=== PATIENT | male | born 1955 ===

== ENCOUNTER 2021-11-23 12:19 | Observation (INO) | payer MEDICARE ==
[~2021-11-23] VITALS: Ht 180.3 cm; Wt 89.0 kg
[2021-11-23] MEDS ORDERED: FLUT.05NI (14:56)
[2021-11-23] MEDS ORDERED: ALLEGRA ALLERG180 MG PO (14:57)
[2021-11-23] MEDS ORDERED: Aspir 8181 MG PO (14:58)
[2021-11-23] MEDS ORDERED: FAMO20 PO (14:59)
--- NOTE | 2021-11-23 15:43 | NUR ---
PATIENT ARRIVED AT 1437. ASSUMED CARE OF PATIENT UPON HIS ARRIVAL VIA EMS FROM [facility] IN [place]. HE IS A&O X 4, PLEASANT AND COOPERATIVE. DENIES CHEST DISCOMFORT CURRENTLY. HIS AND ADULT CHILDREN ARRIVED SHORTLY AFTER HE DID. WAS ABLE TO AMBULATE INDEPENDENTLY FROM [facility]NEY TO BED. HEPARIN INFUSING THROUGH RAC 18 GAUGE IV; PLACED ON PUMP AT 12.5 ML/HR WHICH WAS RATE AT PREVIOUS HOSPITAL. PT ABLE TO GIVE HISTORY. PLACED ON TELEMETRY: SINUS BRADYCARDIA IN THE 40'S AT REST. CARDIOLOGY CONSULT PLACED, AND DR. ALONSO HAS SEEN PATIENT. DR STEIN ASSESSING PATIENT AT THIS TIME.
--- NOTE | 2021-11-23 15:51 | NUR ---
PROOF OF COVID VACCINATION CARD COPIED AND COPY PLACED ON CHART.
--- NOTE | 2021-11-23 18:28 | NUR ---
SHIFT SUMMARY: NO ACUTE EVENTS SINCE ARRIVAL. DENIES CHEST DISCOMFORT AT THIS TIME. NO EVENTS ON TELEMETRY, SINUS NAKUL, RESTING HR IN THE 40'S WHICH HE STATES IS NORMAL FOR HIM. GETTING UP TO BR INDEPENDENTLY, GAIT STEADY. EDUCATED ABOUT FALL PRECAUTIONS AND THAT IF HE FEELS ANY CHEST DISCOMFORT, DIZZINESS, OR SOB HE NEEDS TO CALL NURISNG IMMEDIATELY; VERBALIZED UNDERSTANDING. PLAN IS CARDIAC CATH IN THE MORNING.
[2021-11-24 02:12] LABS: BASOPHILS ABSOLUTE AUTO 0.07 K/mm3 (0.00-0.23); BASOPHILS PERCENT AUTO 1 % (0-2); EOSINOPHILS ABSOLUTE AUTO 0.32 K/mm3 (0.00-0.68); EOSINOPHILS PERCENT AUTO 6 % (0-6); Hematocrit 42.7 % (37.0-53.0); Hemoglobin 14.2 g/dL (13.5-17.5); IMMATURE GRAN ABSOLUTE AUTO 0.02 K/mm3 (0.00-0.10); IMMATURE GRAN PERCENT AUTO 0 % (0-1); LYMPHOCYTES ABSOLUTE AUTO 2.55 K/mm3 (0.84-5.20); LYMPHOCYTES PERCENT AUTO 50 % (21-46); MONOCYTES ABSOLUTE AUTO 0.37 K/mm3 (0.16-1.47); MONOCYTES PERCENT AUTO 7 % (4-13); Mean Corpuscular HGB 29.8 pg (26.0-34.0); Mean Corpuscular HGB Conc 33.3 g/dL (31.5-36.5); Mean Corpuscular Volume 90 fL (80-100); Mean Platelet Volume 10.8 fL (9.1-12.4); NEUTROPHILS ABSOLUTE AUTO 1.73 K/mm3 (1.96-9.15); NEUTROPHILS PERCENT AUTO 34 % (41-73); Platelet Count 215 K/mm3 (150-400); RDW Coefficient Variation 13.1 % (11.7-14.2); RDW Standard Deviation 43.2 fL (35.1-46.3); Red Blood Cell Count 4.76 M/mm3 (4.30-5.90); White Blood Cell Count 5.06 K/mm3 (4.00-11.30)
--- NOTE | 2021-11-24 02:33 | NUR ---
REPORTED TO DR. 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 PT IS CURRENTLY SLEEPING, HE IS NPO, HE IS AWAITING PLANNED ANGIOGRAM IN THE AM. DR. GALINDO WITH NO NEW ORDERS, WILL CONTINUE TO MONITOR.
[2021-11-24 03:02] LABS: Anion Gap 7 mmol/L (6-16); Blood Urea Nitrogen 19 mg/dL (8-24); Bun/Creatinine Ratio 23.5 (12.0-20.0); CHOL/HDL RATIO 3.5; CO2, Blood 25 mmol/L (21-32); Calcium, Blood 8.7 mg/dL (8.5-10.1); Chloride, Blood 111 mmol/L (98-108); Cholesterol 236 mg/dL (50-200); Creatinine, Blood 0.81 mg/dL (0.60-1.20); Glomerular Filtration Rate 96 (60-); Glucose, Blood 108 mg/dL (70-99); HDL Cholesterol 68 mg/dL (>39); Low Density Lipoprotein Chol 136 mg/dL (0-110); Potassium, Blood 3.9 mmol/L (3.5-5.5); Sodium, Blood 143 mmol/L (136-145); Triglycerides 161 mg/dL (30-160); Very Low Density Lipoprot Chol 32 mg/dL (6-32)
--- NOTE | 2021-11-24 06:20 | NUR ---
SHIFT SUMMARY: PATIENT A/OX4, ADLIB IN ROOM, REPOSITIONS SELF IN BED. NO COMPLAINTS OF CHEST PAIN THROUGHOUT THE NIGHT. TROPONIN RESULTED CRITICAL TONIGHT- MD NOTIFIED. HEPARIN DRIP CONTINUED- REVIEW ADMINISTRATION PER EMAR. TELEMETRY READING SINUS NAKUL THROUGHOUT SHIFT HR SUSTAINING 40'S OCCASIONALLY DROPPING 38- 39 BPM PT NON SYMPTOMATIC - MD NOTIFIED.
--- NOTE | 2021-11-24 06:59 | NUR ---
2 RN HANDOFF SHIFT CHANGE- HEPARIN DRIP VERIFICATION WITH RANCHO ASCENCIO RN
--- NOTE | 2021-11-24 08:46 | NUR ---
PATIENT OFF UNIT TO [facility] CONSULTANT VIA W/C AT 0815. FAMILY HAS ALL BELONGINGS, FOLLOWED PT TO SECOND FLOOR WAITING AREA.
--- NOTE | 2021-11-24 16:31 | NUR ---
SHIFT SUMMARY Pt was a transfer from the medical floor after he went to the heart center for angio with two stents. He was a little dizzy and fatigued when he first got to his room but his vitals were stable and after some rest he started to feel better. His and daughter have been at the bedside. He continues on the IV fluids as ordered and he is also drinking water and ate most of his lunch. He did have a very small amount of bleeding when we first started to take air out of his TR band on the right wrist but the air was replaced and after about another hour we continued to deflate the band slowly and the bleeding has subsided. He does have a small bruise above the band but no hematoma. His blood pressure has also been creeping up so the roaster helper was notified of these findings and he put in orders for a BP med which was given and has been effective thus far. The pt is a little hesitent about taking new meds as he is more of the mind set that diet and exercise will help with his symptoms but with some education he did agree to the current plan and was relieved when his BP did improve. Since his dizziness/fatigue has resolved we have been walking him to the bathroom to void and he is doing very well. 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 He has a resting heart rate in the 40's but this is his baseline. He is able to make his needs know and has his personal items and call light in reach. His family remains at the bedside.
--- NOTE | 2021-11-24 19:59 | NUR ---
ASSUMPTION OF CARE Assumed care of pt at 1900. A/Ox4, independent in room. No cp/pressure. VSS, SBP 140's. 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 R radial site TR band removed, old blood cleaned and tegaderm applied. Patient reports being "hypersensitive to heparin" and bruising occurring in the past. Bruising located on proximal end of where TR band was, L AC due to lab draws, and L bicep from BP cuff. Patient gets up and walks to halls.
[2021-11-25 04:38] LABS: Hemoglobin 14.5 g/dL (13.5-17.5); Mean Corpuscular HGB 29.5 pg (26.0-34.0); Mean Corpuscular Volume 89 fL (80-100); Mean Platelet Volume 10.5 fL (9.1-12.4); Platelet Count 222 K/mm3 (150-400); RDW Coefficient Variation 13.1 % (11.7-14.2); RDW Standard Deviation 42.9 fL (35.1-46.3); Red Blood Cell Count 4.92 M/mm3 (4.30-5.90)
[2021-11-25 04:55] LABS: Creatinine, Blood 0.78 mg/dL (0.60-1.20)
--- NOTE | 2021-11-25 05:18 | NUR ---
SHIFT SUMMARY Patient had no c/o CP/pressure t/o shift. R radial site still with scant sanguinous drainage. No additional bruising noted. Sinus eric on monitor 40-50 (pt is a runner). Other than that VSS. No acute changes this shift. Will report to dayshift RN
--- NOTE | 2021-11-25 07:50 | NUR ---
ASSUME CARE: I assumed care of this patient at 0700.
--- NOTE | 2021-11-25 08:15 | NUR ---
PHONE CALL: RN called to notify Dr Thompson of cardiology discharge. No answer; will call back.
[2021-11-25] MEDS ORDERED: LOSA50 PO (09:31)
[2021-11-25] MEDS ORDERED: TICA90TA PO (09:32)
[2021-11-25] MEDS ORDERED: NITR.4SL SL (09:33)
[2021-11-25] MEDS ORDERED: Crestor40 MG PO (09:33)
--- NOTE | 2021-11-25 10:25 | NUR ---
DISCHARGE: Discharge, follow up, and return instructions discussed with pt and his at bedside. New Rx's discussed and educational handouts provided. Pt and his verbalize understanding and agreement. IV's removed and pt wheeled out via wheelchair by JALEN
== END 2021-11-25 10:28 | disposition home or self-care (01) ==
LOC: MEDS 12:19 → PCU 11-24 09:53 → MEDS 11-24 09:53 → PCU 11-24 10:24
PROVIDERS: Internal Medicine Cardiovascular Disease; ADMIT Internal Medicine
DX: I21.4 Non-ST elevation (NSTEMI) myocardial infarction (principal); I25.119 Atherosclerotic heart disease of native coronary artery with unspecified angina pectoris; I44.0 Atrioventricular block, first degree; E78.5 Hyperlipidemia, unspecified; K21.9 Gastro-esophageal reflux disease without esophagitis; R00.0 Tachycardia, unspecified; I10 Essential (primary) hypertension; Z95.5 Presence of coronary angioplasty implant and graft; Z88.8 Allergy status to other drugs, medicaments and biological substances; Z88.7 Allergy status to serum and vaccine
CPT/HCPCS: 36415; 80048; 80061; 82607; 82746; 84484; 85025; 85027; 85347; 85730; 93005; 93010; 93458; 93571; 96374; 96376; 99152; 99153; A9270; C1725; C1769; C1874; C1887; C1894; C9600; G0378; J0461; J1644; J2250; J3010; J7030; J7040; Q9967